=== PATIENT | male | born 1940 | race Caucasian/White ===

== ENCOUNTER 2017-09-21 08:28 | Day surgery (SDC) | payer MEDICARE ==
--- NOTE | 2017-09-13 13:33 | HP ---
PREOPERATIVE HISTORY AND PHYSICAL: DATE OF SURGERY/ADMISSION: 09/21/17 [facility] DATE OF OFFICE VISIT/ENCOUNTER: 09/12/17 ATTENDING SURGEON: Yuridia Hernandez MD * (DICTATED BY DILIP DAUGHERTY) PROCEDURE: Left wrist carpal tunnel release. TOW BAR DRIVER: Dr. Bauer. CHIEF COMPLAINT: Numbness and tingling, left hand. HISTORY OF PRESENT ILLNESS: This is a 77-year-old male, who complains of numbness and tingling in his left hand ongoing for about a year, it bothers him mostly when he sleeps, but he also gets symptoms during the day. He feels pain in the palm of his hand and numbness into the fingers including all of his fingers. He had a nerve conduction study recently, which showed moderate carpal tunnel syndrome bilaterally. He also has a sensory polyneuropathy. The patient has consented to proceed with surgical intervention for his left carpal tunnel syndrome. He has some cardiac issues and last saw his service associate, Dr. Bauer in January 2017. He had a chemical nuclear stress test in February 2017. He has not had any cardiac symptoms at all since then. There have been no changes in his medications. He has a pacemaker. PAST MEDICAL HISTORY: 1. Hypertension. 2. Hypercholesterolemia. 3. Back pain. 4. Unspecified bradycardia. PAST SURGICAL HISTORY: 1. Pacemaker implant in 2015. 2. Appendectomy. 3. Toe amputation in 2013. 4. Cyst excision from breast. 5. Right total knee arthroplasty in 2016. CURRENT MEDICATIONS: 1. Aspirin, adult, low-dose, 81 mg daily. 2. Choline fenofibrate 135 mg daily. 3. Fish oil 1000 mg daily. 4. Glucosamine 1500, complex 2000 mg daily. 5. L-theanine 100 mg 1-1/2 tabs daily. 6. Lisinopril 10 mg daily. 7. Melatonin ER 10 mg daily. 8. Noopept 20 mg daily. 9. Senior vitamin daily. 10. Simvastatin 20 mg daily. ALLERGIES: No known drug allergies. FAMILY MEDICAL HISTORY: Heart disease and stroke. 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 He denies tobacco use or recreational drug use. He does drink alcohol on regular occasion, approximately 2 drinks per day. REVIEW OF SYSTEMS: General: Negative for fevers, chills, or night sweats. No known anesthesia problems. HEENT: Negative for headache, lightheadedness, or syncopal episodes. No visual changes. Integumentary: Negative for abrasions, lesions, open wounds. Cardiothoracic: Negative for hypertension, chest pain, palpitations, edema. Respiratory: Negative for shortness of breath with exertion, chronic cough, wheezing. GI: Negative for nausea, vomiting, diarrhea , constipation, GERD. : Negative for nocturia, urinary frequency, urgency, history of UTIs, kidney problems. Musculoskeletal: Positive for current complaint. Positive for chronic back pain. Neurological: Negative for paresthesias, numbness, history of seizure, stroke, poor balance. Endocrine: Negative for diabetes and thyroid issues. Hematologic: Negative for easy bruising, anemia, bleeding disorders, history of DVT. Infectious Disease: Negative for history of MRSA, hepatitis C, HIV. PHYSICAL EXAMINATION GENERAL: Well-developed, well-nourished 77-year-old male, in no acute distress. VITAL SIGNS: Height 5 feet 9-1/2 inches, weight 209 pounds. Pulse rate 59, blood pressure 116/69. HEENT: Normocephalic, atraumatic. Pupils are equal, round, and reactive to light and accommodation. Extraocular movements are intact. NECK: Supple. No palpable lymph nodes. Throat is clear. PULMONARY: Lungs are clear to auscultation bilaterally. No wheezes, rales, or rhonchi. CARDIOVASCULAR: Regular rate and rhythm. S1, S2. No murmurs, rubs, or gallops. No edema. ABDOMEN: Positive bowel sounds, soft, nontender. NEUROLOGIC: Alert and oriented x3. Cranial nerves II through XII are intact. Sensation is intact to light touch. MUSCULOSKELETAL: On exam of his left upper extremity, he has mild thenar wasting and first dorsal interosseous wasting, but good strength of finger abduction on the left. Mild weakness was found on abduction. He can make a good fist bilaterally. He has a negative Tinel's sign at the median nerve. Negative Phalen's test. Sensation is intact to light touch throughout the hand. DIAGNOSTIC STUDIES/LAB DATA: EMG nerve conduction study, moderate bilateral carpal tunnel syndrome. IMPRESSION: Bilateral carpal tunnel syndrome. PLAN: The patient is scheduled to undergo a left wrist carpal tunnel release with Dr. Hernandez on 09/21/17. He will return to the office 10 days postop for followup and suture removal. A prescription for Ultracet was e-scribed to the patient's pharmacy for postoperative pain management. DILIP DAUGHERTY [id number]/[facility] #: [id number]
[~2017-09-21 08:28] MED LIST: Buffered Lidocaine 0.9% SYRIN* 5 ML/SYR SYRINGE INTRADERM ONE
[2017-09-21] MEDS ORDERED: Lidocaine 1% INJ* 10 MG/ML 30 ML SDV ONE (08:51)
[2017-09-21] MEDS ORDERED: fentaNYL* 50 MCG/ML 2 ML VIAL (100 MCG VIAL) ONE (08:52)
[2017-09-21] MEDS ORDERED: Propofol* 10 MG/ML 20 ML BTL IV PUSH ONE (08:53)
[2017-09-21] MEDS ORDERED: Lidocaine 2% PF * 5 ML VIAL ONE (08:53)
[2017-09-21] MEDS ORDERED: Acetaminophen TAB* 325 MG PO PRN (09:45)
[2017-09-21] MEDS ORDERED: fentaNYL* 50 MCG/ML 2 ML VIAL (100 MCG VIAL) IV PRN (09:45)
[2017-09-21] MEDS ORDERED: Naloxone* 0.4 MG/ML 1 ML VIAL IV PRN (09:45)
[2017-09-21] MEDS ORDERED: Ondansetron INJ* 2 MG/ML VIAL IV PRN (09:45)
[2017-09-21] MEDS ORDERED: oxyCODONE/Acetamin 5/325 MG* TAB PO PRN (09:45)
[2017-09-21] MEDS ORDERED: HYDROmorphone INJ* 1 MG/ML CARPUJECT SYRINGE IV PRN (09:45)
[2017-09-21] MEDS ORDERED: oxyCODONE TAB* 5 MG TAB PO PRN (09:45)
[2017-09-21 10:45] VITALS: BP 104/53
--- NOTE | 2017-09-22 04:26 | OP ---
DATE OF OPERATION: 09/21/17 [facility] DATE OF : 38 SURGEON: Yuridia Hernandez MD. BUSINESS ANALYTICS ANALYST: DILIP Mejia ANESTHESIA: Local MAC. PRE-OP DIAGNOSIS: Left carpal tunnel syndrome. POST-OP DIAGNOSIS: Left carpal tunnel syndrome. PROCEDURE: Left carpal tunnel release. ESTIMATED BLOOD LOSS: Zero. TOURNIQUET TIME: About 5 minutes. INDICATIONS FOR PROCEDURE: Kellie Orellana is a 77-year-old male with numbness and tingling in the median nerve distribution of his left hand. He presents for left carpal tunnel release. DESCRIPTION OF PROCEDURE: The patient was brought to the operating room and was given a sedation anesthetic and a local infiltration with 10 cc of 1% plain lidocaine. Skin of his left hand and forearm was prepped and draped in the usual sterile fashion. The hand and forearm were exsanguinated and the tourniquet elevated to 250 mmHg. A longitudinal incision was made in the palm in line with the ring finger. We dissected sharply through the subcutaneous tissue down to the transverse carpal ligament. The ligament was divided sharply with a knife and then more proximally with the scissors. The nerve was dissected free from the surrounding tissue, and there was an area of moderate compression at the mid portion of the ligament. The wound was irrigated, and the skin edges were reapproximated with 4-0 nylon suture. The wound was dressed with Xeroform, 4x4, Webril, and an Jacinto wrap. The patient tolerated the procedure well and was brought to the recovery room in good condition. [id number]/[facility] #: [id number] [facility]
== END 2017-09-21 10:42 | disposition home or self-care (01) ==
LOC: OREAST 08:28
PROVIDERS: ATTEND Orthopaedic Surgery
DX: G56.02 Carpal tunnel syndrome, left upper limb (principal); I10 Essential (primary) hypertension; E78.00 Pure hypercholesterolemia, unspecified; R00.1 Bradycardia, unspecified; Z95.0 Presence of cardiac pacemaker
CPT/HCPCS: J2704; J3010

== ENCOUNTER 2023-11-19 11:46 | Observation (INO) ==
[2023-11-19 12:30] LABS: ABS Basophils 0.1 10^3/uL (0.0-0.1); ABS Eosinophils 0.1 10^3/uL (0.0-0.5); ABS Lymphocytes 1.6 10^3/uL (1.0-4.8); ABS Monocytes 0.4 10^3/uL (0.0-1.1); ABS Neutrophils 9.2 10^3/uL (1.5-7.6); ABS Nucleated RBC 0.01 10^3/ul; Eosinophil % 0.5 %; Hematocrit 42.7 % (38-53); Hemoglobin 14.1 g/dL (13.2-16.3); Mean Corpuscular Hemoglobin 31.4 pg (27-33); Mean Corpuscular Volume 95.1 fL (80-97); Mean Platelet Volume 6.9 fL (7.5-11.2); Nucleated Red Blood Cells % 0.1 %/100WBC (0.0-0.8); Platelet Count 192 10^3/uL (150-450); Red Cell Distribution Width 14.4 % (12-17); White Blood Count 11.3 10^3/uL (3.6-10.2)
[2023-11-19 12:41] LABS: INR 0.89 (0.83-1.13)
[2023-11-19 12:49] LABS: Albumin/Globulin Ratio 1.4 (1-3); Calcium 8.6 mg/dL (8.6-10.3); Creatinine, Serum 0.93 mg/dL (0.67-1.17); Globulin 2.9 g/dL (2-4); Potassium 4.2 mmol/L (3.5-5.0); Total Bilirubin 0.5 mg/dL (0.2-1.0); Total Protein 6.9 g/dL (6.4-8.9)
[2023-11-19] MEDS: Iodixanol (CONTRAST) 320 MG/ML 100 ML SDV IV ONE (13:41)
[2023-11-19 13:51] LABS: High Sensitivity Troponin 1 Hr 13 pg/mL (<20)
[2023-11-19] MEDS: Polyethylene Glycol 3350 17 GM PACKET PO SCH (21:16)
[2023-11-19] MEDS: Simvastatin 20 mg TAB (NF) PO SCH (21:16)
[2023-11-19] MEDS: Heparin 5000 UNITS/ML 1 mL VIAL SUBCUT SCH (21:17)
[2023-11-20] MEDS ORDERED: Aminophylline 25 MG/ML VIAL ONE (08:27)
[2023-11-20] MEDS ORDERED: Regadenoson 0.4 MG/5 ML SYRINGE ONE (08:27)
[2023-11-20] MEDS: Solifenacin 5 mg TAB (NF) PO SCH (10:58)
[2023-11-20] MEDS: Aspirin EC 81 mg TAB.EC (enteric coated) PO SCH (11:00)
[2023-11-20 13:52] VITALS: BP 105/86
== END 2023-11-20 15:20 | disposition home or self-care (01) ==
LOC: ED 11:46 → EDHOLD 11:46 → MEDTELE 17:56
PROVIDERS: ADMIT Hospitalist; ATTEND Hospitalist